=== PATIENT | female | born 1995 | race Two or more races ===

== ENCOUNTER 2016-11-21 09:26 | Emergency (ER) | payer OTHER ==
--- NOTE | 2016-11-21 09:54 | ER Document Report ---
HPI - HPI Patient complains to provider of: ankle injury Pain Level: 4 Context: 20 yo female c/o pain to left ankle. pt reports she fell off obstacle coarse and hyperflexed ankle. heard a pop, felt pain. unable to bear weight. no previous ankle injuries. denies other injury Associated Symptoms: None Exacerbated by: Standing, Movement, Walking Similar symptoms previously: No Recently seen / treated by doctor: No - ROS Systems Reviewed and Negative: Yes All other systems reviewed and negative - DERM Skin Color: Normal Past Medical History - General Information source: Patient - Social History Smoking Status: Never Smoker Frequency of alcohol use: None Drug Abuse: None Lives with: Family Family History: Reviewed & Not Pertinent Patient has suicidal ideation: No Patient has homicidal ideation: No - Medical History Medical History: Negative Renal/ Medical History: Denies: Hx Peritoneal Dialysis Vertical Provider Document - CONSTITUTIONAL Agree With Documented VS: Yes Exam Limitations: No Limitations General Appearance: WD/WN, No Apparent Distress - INFECTION CONTROL TRAVEL OUTSIDE OF THE [place] IN LAST 30 DAYS: No - HEENT HEENT: Atraumatic, Normal ENT Exam, PERRLA - NECK Neck: Normal Inspection, Supple - RESPIRATORY Respiratory: Breath Sounds Normal, No Respiratory Distress O2 Sat by Pulse Oximetry: 100 - CARDIOVASCULAR Cardiovascular: Regular Rate, Regular Rhythm - GI/ABDOMEN Gastrointestinal: Abdomen Soft, Abdomen Non-Tender - MUSCULOSKELETAL/EXTREMETIES Musculoskeletal/Extremeties: Tender - focal pain left lateral mallealus. mild soft tissue swelling. no deformity. distal SMC intact. - NEURO Level of Consciousness: Awake, Alert, Appropriate Motor/Sensory: No Motor Deficit, No Sensory Deficit - DERM Integumentary: Warm, No Rash Course - Re-evaluation Re-evalutation: 11/21/16 10:02 pt evaluated. xray ordered. ankle positioned for comfort, elevated with ice pack. pt declined any pain med at this time 11/21/16 10:35 xray showing no fracture, + joint effusion. results reviewed with patient. will immobilize the ankle. no weight bearing. orthopedic follow up if pain persists. pt agreeable with plan and stable for discharge - Vital Signs Vital signs: Temp Pulse Resp BP Pulse Ox 98.5 F 76 16 124/76 100 11/21/16 09:37 11/21/16 09:37 11/21/16 09:37 11/21/16 09:37 11/21/16 09:37 Procedures - Immobilization left ankle Immobilizer type: Ankle stirrup Performed by: PCT Post-Proc Neuro Vasc Exam: Normal Alignment checked and good: Yes Discharge - Discharge Clinical Impression: Left ankle sprain Qualifiers: Encounter type: initial encounter Involved ligament of ankle: unspecified ligament Qualified Code(s): S93.402A - Sprain of unspecified ligament of left ankle, initial encounter Condition: Stable Disposition: HOME, SELF-CARE Instructions: Ankle Stirrup Splint ([facility]), Use of Crutches ([facility]), Ice & Elevation ([facility]), Oral Narcotic Medication ([facility]), Sprained Ankle ([facility]), Ibuprofen (General) ([facility]) Additional Instructions: Your xray is negative for fracture, but there is a joint effusion which is indicative a ligamental or tendon injury. use splint for comfort and protection ibuprofin and pain med as prescribed please follow up with primary care if symptoms/pain persist more than 10 days Prescriptions: Hydrocodone/Acetaminophen [[place] 5-325 mg Tablet] 1 tab PO Q4H PRN #15 tablet PRN Reason: Ibuprofen [Motrin 800 mg Tablet] 800 mg PO Q8H PRN #30 tab PRN Reason:
[2016-11-21 11:27] VITALS: BP 120/70
== END 2016-11-21 11:10 | disposition home or self-care (01) ==
LOC: ER 09:26
DX: S93.402A Sprain of unspecified ligament of left ankle, initial encounter (principal); W17.89XA Other fall from one level to another, initial encounter; Y93.89 Activity, other specified; Y92.89 Other specified places as the place of occurrence of the external cause
CPT/HCPCS: 99283; 73610; L1902